=== PATIENT | male | born 1980 | race American Indian/Alaskan Native ===

== ENCOUNTER 2019-01-03 15:24 | Emergency (ER) | payer MEDICARE, MEDICAID ==
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
[2019-01-03 16:44] LABS: BASO # 0.1 K/uL (0.0-0.2); BASO % 0.8 % (0.0-2.0); EOS # 0.2 K/uL (0.0-0.7); EOS % 2.2 % (0.0-4.0); HEMOGLOBIN 14.9 g/dL (12.0-18.0); LYMPH # 1.5 K/uL (1.0-4.3); MEAN CELL VOLUME 87.1 fL (80.0-94.0); MEAN CORPUSCULAR HEMOGLOBIN 28.5 pg (27.0-31.0); MEAN CORPUSCULAR HGB CONC 32.7 g/dL (33.0-37.0); MEAN PLATELET VOLUME 7.1 fL (7.2-11.7); MONO # 0.7 K/uL (0.0-0.8); MONO % 9.7 % (0.0-10.0); NEUT # 4.9 K/uL (1.8-7.0); NEUT % 66.3 % (50.0-75.0); NRBC % 0.1 % (0.0-2.0); RBC 5.23 Mil/uL (4.40-5.90); RED CELL DISTRIBUTION WIDTH 13.1 % (11.5-14.5); WHITE BLOOD COUNT 7.4 K/uL (4.8-10.8)
[2019-01-03 16:51] LABS: SQUAMOUS EPITHIAL 1 /hpf (0-5); URINE BILIRUBIN NEGATIVE (NEGATIVE); URINE BLOOD NEGATIVE (NEGATIVE); URINE CLARITY Clear (Clear); URINE COLOR Yellow (YELLOW); URINE GLUCOSE (UA) NORMAL (Normal); URINE LEUKOCYTE ESTERASE NEG Leu/uL (Negative); URINE PROTEIN NEGATIVE (NEGATIVE)
[2019-01-03 17:02] LABS: ALB/GLOB RATIO 1.2 (1.0-2.1); ALBUMIN 4.9 g/dL (3.5-5.0); ALT/SGPT 41 U/L (21-72); AST/SGOT 46 U/L (17-59); BLOOD UREA NITROGEN 16 mg/dL (9-20); CALCIUM 10.5 mg/dl (8.6-10.4); GFR NON-AFRICAN AMERICAN > 60
[2019-01-03] MEDS ORDERED: diaZEpam 10 mg/2 ml Inj IVP ONE (17:09)
[2019-01-03] MEDS ORDERED: diaZEpam 10 mg/2 ml Inj ONE (17:26)
[2019-01-03] MEDS ORDERED: Iohexol 240 (50 ml) PO ONE (18:32)
[2019-01-03] MEDS ORDERED: Iohexol 240 (50 ml) ONE (18:45)
[2019-01-03] MEDS ORDERED: Iohexol 350mg/ml 100 ML ONE (21:18)
[2019-01-04 01:18] VITALS: RESP 18; O2SAT 100
[2019-01-04] MEDS ORDERED: Oxycodone/Acetaminophen 5/325 mg Tab PO STA (01:22)
[2019-01-04] MEDS ORDERED: Oxycodone/Acetaminophen 5/325 mg Tab ONE (01:30)
[2019-01-04 01:59] VITALS: BP 133/92; PULSE 104; TEMP 97.4
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
== END 2019-01-04 02:01 | disposition short-term general hospital (02) ==
LOC: C.ER 15:24
DX: R10.12 Left upper quadrant pain (principal); S35.10XA Unspecified injury of inferior vena cava, initial encounter; X58.XXXA Exposure to other specified factors, initial encounter
CPT/HCPCS: 74177; 80053; 81001; 83735; 84100; 85025; 96374; 96375; 99285; J1885; J3360; Q9966; Q9967